=== PATIENT | male | born 1945 | race Caucasian/White ===

== ENCOUNTER 2021-11-05 19:18 | Emergency (ER) | payer OTHER, MEDICARE ==
[~2021-11-05] VITALS: Ht 167.6 cm; Wt 79.5 kg
--- NOTE | 2021-11-05 19:51 | NUR ---
Pt presents to ED from [facility]ke related to left great toe pain. States that he is a diabetic and his toe nails need clipping, has not recently injured. No bruising or open areas noted. No redness. No acute distress, will monitor throughout.
[2021-11-05 20:11] VITALS: BP 147/89
[2021-11-05] MEDS ORDERED: NAPR-56 PO (21:45)
== END 2021-11-05 22:12 | disposition home or self-care (01) ==
LOC: ER 19:20
DX: M79.675 Pain in left toe(s) (principal); E11.9 Type 2 diabetes mellitus without complications; Z79.899 Other long term (current) drug therapy
CPT/HCPCS: 73630; 99284